=== PATIENT | female | born 1990 | race Caucasian/White ===

== ENCOUNTER 2020-05-10 22:33 | Emergency (ER) | payer OTHER ==
[2020-05-10 23:06] VITALS: BP 106/70; PULSE 85; TEMP 98.9; BMI 23.5
--- NOTE | 2020-05-10 23:13 | PDOC ---
History of Present Illness - General Chief Complaint: CVA/TIA Stated Complaint: NUMBNESS Time Seen by Provider: 05/10/20 23:05 History Source: Patient Exam Limitations: No Limitations - History of Present Illness Initial Comments: 05/10/20 23:28 29y previously healthy F presenting w 3d nausea, vomiting, finger tingling after binge drinking [employer] vodka. Took tylenol and force vomiting today w/o relief. Denies fever, cough, chest pain, SOB, urinary/bowel mvmt changes. Past History - Medical History Allergies/Adverse Reactions: Allergies Allergy/AdvReac Type Severity Reaction Status Date / Time No Known Allergies Allergy Verified 06/18/14 19:53 Home Medications: Ambulatory Orders Amoxicillin/Potassium Clav [Augmentin 875-125 Tablet] 1 each PO BID #14 tablet 06/18/14 Ibuprofen [Motrin -] 600 mg PO TID #20 tablet 06/18/14 Sulfamethoxazole/Trimethoprim [Bactrim DS -] 1 tab PO BID #10 tablet 06/18/14 Oxycodone HCl/Acetaminophen [Percocet 5-325 mg Tablet -] 1 tab PO Q6H PRN #4 tablet 06/19/14 Ondansetron [Zofran *Odt*] 4 mg SL TID #10 od.tablet 05/11/20 COPD: No - Reproductive History Is Patient Now?: No - Psycho-Social/Smoking History Smoking History: Never smoked Have you smoked in the past 12 months: No Number of Cigarettes Smoked Daily: 0 If you are a former smoker, when did you quit?: SMOKES MARIJUANA DAILY PER HER REPORT 'Breaking Loose' booklet given: 06/18/14 - Substance Abuse Hx (Audit-C & DAST Scrn) How often the patient has a drink containing alcohol: Monthly or less Score: In Men: 4 or > Positive; In Women: 3 or > Positive: 1 Screen Result (Pos requires Nsg. Audit-10AR): Negative In the last yr the pt used illegal drug/Rx for NonMed reason: Yes Score: Yes response is considered Positive: 1 Screen Result (Positive result requires Nsg. DAST-10): Positive Review of Systems - Review of Systems Constitutional: No: Chills, Fever HEENTM: No: Eye Pain, Nose Congestion Respiratory: No: Cough, Shortness of Breath Cardiac (ROS): No: Chest Pain, Palpitations ABD/GI: Yes: Nausea, Vomiting. No: Constipated, Diarrhea : No: Burning, Dysuria Musculoskeletal: No: Back Pain, Joint Pain Integumentary: No: Bruising, Flushing Neurological: No: Headache, Seizure Psychiatric: No: Anxiety, Depression Endocrine: No: Intolerance to Cold, Intolerance to Heat Hematologic/Lymphatic: No: Anemia, Blood Clots *Physical Exam - Vital Signs Last Vital Signs Temp Pulse Resp BP Pulse Ox 98.9 F 85 20 106/70 100 05/10/20 23:00 05/10/20 23:00 05/10/20 23:00 05/10/20 23:00 05/10/20 23:00 - Physical Exam General Appearance: Yes: Nourished, Appropriately Dressed, Mild Distress HEENT: positive: EOMI, RAJENDRA, Normal Voice, Hearing Grossly Normal. negative: Scleral Icterus (R), Scleral Icterus (L) Respiratory/Chest: positive: Lungs Clear, Normal Breath Sounds. negative: Chest Tender, Respiratory Distress Cardiovascular: positive: Regular Rhythm, Regular Rate, S1, S2. negative: Edema, Murmur Gastrointestinal/Abdominal: positive: Normal Bowel Sounds, Flat, Soft. negative: Tender, Organomegaly Musculoskeletal: negative: CVA Tenderness (R), CVA Tenderness (L) Extremity: positive: Delayed Capillary Refill Integumentary: positive: Normal Color, Dry, Warm Neurologic: positive: Fully Oriented, Alert, Normal Mood/Affect, Normal Response, Responsive. negative: Confused, Disoriented ED Treatment Course - LABORATORY CBC & Chemistry Diagram: 05/11/20 00:05 05/11/20 00:05 Medical Decision Making - Medical Decision Making 05/11/20 01:33 EKG - sinus bradycardia, HR 59, QTc 431, low voltage 7.5 metabolic alkalosis --- 29y previously healthy F presenting w 3d nausea, vomiting, finger tingling after binge drinking [employer] vodka Symptoms 2/2 veisalgia vs dehydration. No severe metabolic abnormalities, not , no sign of alcoholic acidosis Given 1L NS, banana bag, zofran, pepcid. Pt refused maalox. Tolerated PO fluids DC home w PCP referral, zofran Discharge - Discharge Information Problems reviewed: Yes Clinical Impression/Diagnosis: Dehydration Hangover Qualifiers: Complication of substance-induced condition: uncomplicated Qualified Code(s): F10.120 - Alcohol abuse with intoxication, uncomplicated Condition: Improved Disposition: HOME - Additional Discharge Information Prescriptions: Ondansetron [Zofran *Odt*] 4 mg SL TID #10 od.tablet - Follow up/Referral Referrals: Ra Verdin MD [Staff Physician] - - Patient Discharge Instructions Patient Printed Discharge Instructions: DI for Alcohol Abuse Additional Instructions: Your workup did not show anything concerning Do not binge drink alcohol Drink lots of water Follow up with the referred primary care doctor Dr Verdin - Post Discharge Activity
[2020-05-10] MEDS ORDERED: ONDANSETRON 4 MG/2 ML VIAL IVPUSH ONE (23:19)
[2020-05-10] MEDS ORDERED: SODIUM CHLORIDE 0.9% 500 ML INFUS.BAG IV ONE (23:19)
[2020-05-10] MEDS ORDERED: FOLIC ACID INJECTION - 1 MG, THIAMINE HCL 100 MG, MULTIVIT INJECTION ADULT 10 ML in SOD... IVPB ONE (23:25)
[2020-05-11 00:27] LABS: HEMOGLOBIN 13.7 GM/dL (10.7-15.3)
[2020-05-11 00:30] LABS: BASO % 0.6 % (0-2.0); EOS % 0.6 % (0-4.5); LYMPH % 27.1 % (8-40); MCH 29.8 pg (25.7-33.7); MCHC 34.3 g/dl (32.0-36.0); MEAN CELL VOLUME 86.8 fl (80-96); MEAN PLT VOLUME 9.2 fl (7.5-11.1); MONO % 8.1 % (3.8-10.2); NEUT % 63.6 % (42.8-82.8); PLATELET COUNT 266 K/MM3 (134-434); RDW 12.4 % (11.6-15.6)
[2020-05-11 00:52] LABS: ALBUMIN 4.4 g/dl (3.4-5.0); BILIRUBIN,TOTAL 1.2 mg/dL (0.2-1); BLOOD UREA NITROGEN 10.6 mg/dL (7-18); CALCIUM 9.6 mg/dL (8.5-10.1); CREATININE 0.7 mg/dL (0.55-1.3); PHOSPHOROUS 2.2 mg/dL (2.5-4.9); POTASSIUM 3.6 mmol/L (3.5-5.1); TOT PROT 7.7 g/dl (6.4-8.2)
[2020-05-11 00:54] LABS: VENOUS BASE EXCESS -1.9 mmol/L (-2-2); VENOUS O2 SATURATION 68.3 % (70-80); VENOUS PCO2 23.8 mmHg (38-52); VENOUS PH 7.524 (7.310-7.410)
[2020-05-11] MEDS ORDERED: MAG HYDROX/AL HYDROX/SIMETH 30 ML UNIT-DOSE CUP PO ONE (00:59)
[2020-05-11] MEDS ORDERED: FAMOTIDINE 20 MG/50 ML IVPB 20 MG/50 ML MG IVPB ONE ×2 (00:59→01:09)
[2020-05-11] MEDS ORDERED: MAG HYDROX/AL HYDROX/SIMETH 30 ML UNIT-DOSE CUP ONE (01:05)
[2020-05-11] MEDS ORDERED: ONDANSETRON 4 MG/2 ML VIAL IVPUSH ONE (01:53)
--- NOTE | 2020-05-11 21:06 | PDOC ---
Documentation entered by Kori Núñez SCRIBE, acting as scribe for Chantelle Henning MD. Chantelle Henning MD: This documentation has been prepared by the sheryleNiya Sydney, SCRIBE, under my direction and personally reviewed by me in its entirety. I confirm that the documentation accurately reflects all work, treatment, procedures, and medical decision making performed by me. Attending Attestation - Resident Resident Name: Abimael Juárez - ED Attending Attestation I have performed the following: I have examined & evaluated the patient, The case was reviewed & discussed with the resident, I agree w/resident's findings & plan, Exceptions are as noted - HPI HPI: 05/10/20 23:37 Patient is a 29 year old female with no significant past medical history who presents to the ED with three days of worsening nausea and vomiting. As per patient, she had been binge drinking [employer] vodka when she developed her symptoms and also endorses some associated finger tingling. Patient reports taking tylenol and force vomiting today with no relief of her symptoms, prompting her arrival to the ED. Denies fever, chills, headache, chest pain, shortness of breath, diarrhea, constipation, or urinary changes. Allergies: NKDA - Physicial Exam PE: 05/12/20 05:50 Pt went out drinking and she has epigastric pain and nausea. Pt has been vomiting and nauseous. 05/12/20 06:11 Agree with resident exam - Medical Decision Making 05/12/20 05:50 Pt was hydrated in the ER; she doesn't feels well, but she is feeling slightly improved. She has normal labs. Betahydroxybutarate is elevated. Pt encouraged to drink and hydrate at home. Pt understands that her tbili is elevated and that she needs to not binge drink. Pt admits that she went out got her hair done and then barely ate and then she and her sig other went out drinking in [facility] Discharge - Discharge Information Problems reviewed: Yes Clinical Impression/Diagnosis: Dehydration Hangover Qualifiers: Complication of substance-induced condition: uncomplicated Qualified Code(s): F10.120 - Alcohol abuse with intoxication, uncomplicated Condition: Improved Disposition: HOME - Additional Discharge Information Prescriptions: Ondansetron [Zofran *Odt*] 4 mg SL TID #10 od.tablet - Follow up/Referral Referrals: Ra Verdin MD [Staff Physician] - Maddie Thompson MD [Staff Physician] - - Patient Discharge Instructions Patient Printed Discharge Instructions: DI for Alcohol Abuse Additional Instructions: Your workup did not show anything concerning Do not binge drink alcohol Drink lots of water Follow up with the referred primary care doctor Dr Verdin and referred GI Dr Thompson Come back to the ED if you have worsening abdominal pain, persistent vomiting, or fevers. - Post Discharge Activity
--- NOTE | 2020-05-12 21:47 | EKG ---
Test Reason : Blood Pressure : / mmHG Vent. Rate : 059 BPM Atrial Rate : 059 BPM P-R Int : 140 ms QRS Dur : 096 ms QT Int : 436 ms P-R-T Axes : 030 036 035 degrees QTc Int : 431 ms SINUS BRADYCARDIA CANNOT RULE OUT ANTERIOR INFARCT , AGE UNDETERMINED ABNORMAL ECG NO PREVIOUS ECGS AVAILABLE Confirmed by JORGE RODRIGUES MD ([id number]) on 05/12/2020 9:46:48 PM Referred By: Confirmed By:JORGE RODRIGUES MD
== END 2020-05-11 02:40 | disposition home or self-care (01) ==
LOC: JER 22:33
PROC: 3E033GC Introduction of Other Therapeutic Substance into Peripheral Vein, Percutaneous Approach (ICD-10-PCS; principal; 2020-05-10)
DX: E86.0 Dehydration (principal); F10.120 Alcohol abuse with intoxication, uncomplicated
CPT/HCPCS: 36415; 80053; 82010; 82803; 83735; 84100; 84703; 85025; 93005; 93010; 99284-25

== ENCOUNTER 2020-05-12 03:32 | Emergency (ER) | payer OTHER ==
--- NOTE | 2020-05-12 04:03 | PDOC ---
Attending Attestation - Resident Resident Name: Abimael Juárez - ED Attending Attestation I have performed the following: I have examined & evaluated the patient, The case was reviewed & discussed with the resident, I agree w/resident's findings & plan - HPI HPI: 05/12/20 04:03 PT RETURNS - Physicial Exam PE: 05/12/20 05:52 Pt has lower abd pain. She feels lousyAfebtile neuro no deficits no upper abd pain no flank pain no extremity swelling lower quadrant pain; No vag discharge - Medical Decision Making 05/12/20 05:54 UA will be sent covid testing will be sent 05/12/20 06:52 SONO OF PELVIS PENDING; PT WILL BE SIGNED OUT TO THE DAY TEAM Discharge - Discharge Information Problems reviewed: Yes Clinical Impression/Diagnosis: Pelvic pain, Dehydration UTI (urinary tract infection) Qualifiers: Urinary tract infection type: acute cystitis Hematuria presence: without hematuria Qualified Code(s): N30.00 - Acute cystitis without hematuria Condition: Improved Disposition: HOME - Additional Discharge Information Prescriptions: Cephalexin [Keflex] 250 mg PO QID 5 Days #5 capsule - Follow up/Referral Referrals: Lan Tolbert MD [Staff Physician] - Bharti Morris MD [Staff Physician] - Kaylan Bradford MD [Staff Physician] - Yonas Saravia MD [Staff Physician] - CallBack Reminder: GC - Patient Discharge Instructions Patient Printed Discharge Instructions: DI for Ovarian Cyst Additional Instructions: You came into the ED for abdominal pain with nausea for a few days. With your recent visit you were sent home with zofran which helped with nausea but not the abdominal pain. Pelvic exam showed some discharge without any other concerning signs. Urinalysis did not show blood, making kidney stones unlikely, however there were some bacteria, so possible UTI and will be discharged with antibiotics. You had a pelvic ultrasound done which showed a right ovarian cyst with free pelvic fluid. This could be evidence of a ruptured cyst causing abdominal pain, and should expect to have continued discomfort over the next few days. It is advised that you follow up with OBGYN within the next 2 weeks. Return to the ED if you experience intense abdominal pain, abnormal vaginal bleeding, or vomiting without the ability to hold down water. - Post Discharge Activity
--- NOTE | 2020-05-12 04:06 | PDOC ---
History of Present Illness - General Chief Complaint: Pain, Acute Stated Complaint: ABDOMINAL PAIN Time Seen by Provider: 05/12/20 03:56 History Source: Patient Exam Limitations: No Limitations - History of Present Illness Initial Comments: 05/12/20 05:15 29y previously healthy F presenting w 1d intermittent mild pelvic pain. Not exertional. Not improved w zofran and tylenol, last 9pm last night. Has been tolerating PO fluids. Had L ruptured cyst in past. Was evaluated in ED yesterday for 3d nausea, vomiting, abd discomfort attributed to veisalgia vs dehydration. Denies fever, n/v, dysuria, constipation, vaginal bleeding/discharge. Past History - Medical History Allergies/Adverse Reactions: Allergies Allergy/AdvReac Type Severity Reaction Status Date / Time No Known Allergies Allergy Verified 05/12/20 04:02 Home Medications: Ambulatory Orders Amoxicillin/Potassium Clav [Augmentin 875-125 Tablet] 1 each PO BID #14 tablet 06/18/14 Ibuprofen [Motrin -] 600 mg PO TID #20 tablet 06/18/14 Sulfamethoxazole/Trimethoprim [Bactrim DS -] 1 tab PO BID #10 tablet 06/18/14 Oxycodone HCl/Acetaminophen [Percocet 5-325 mg Tablet -] 1 tab PO Q6H PRN #4 tablet 06/19/14 Ondansetron [Zofran *Odt*] 4 mg SL TID #10 od.tablet 05/11/20 COPD: No - Reproductive History Is Patient Now?: No - Psycho-Social/Smoking History Smoking History: Never smoked Have you smoked in the past 12 months: No Number of Cigarettes Smoked Daily: 0 If you are a former smoker, when did you quit?: SMOKES MARIJUANA DAILY PER HER REPORT Information on smoking cessation initiated: No 'Breaking Loose' booklet given: 06/18/14 - Substance Abuse Hx (Audit-C & DAST Scrn) How often the patient has a drink containing alcohol: Monthly or less Number of drinks the patient has on a typical day: 1 or 2 How often the patient has six or more drinks on one occasion: Never Score: In Men: 4 or > Positive; In Women: 3 or > Positive: 1 Screen Result (Pos requires Nsg. Audit-10AR): Negative In the last yr the pt used illegal drug/Rx for NonMed reason: No Score: Yes response is considered Positive: 0 Screen Result (Positive result requires Nsg. DAST-10): Negative Review of Systems - Review of Systems Constitutional: No: Chills, Fever HEENTM: No: Eye Pain, Nose Congestion Respiratory: No: Cough, Shortness of Breath Cardiac (ROS): No: Chest Pain, Palpitations ABD/GI: No: Abdominal Distended, Constipated, Diarrhea : No: Burning, Dysuria Musculoskeletal: No: Back Pain, Joint Pain Integumentary: No: Bruising, Flushing Neurological: No: Headache, Seizure Psychiatric: No: Anxiety, Depression Endocrine: No: Intolerance to Cold, Intolerance to Heat Hematologic/Lymphatic: No: Anemia, Blood Clots *Physical Exam - Vital Signs Last Vital Signs Temp Pulse Resp BP Pulse Ox 97.8 F 74 15 101/65 98 05/12/20 04:00 05/12/20 04:00 05/12/20 04:00 05/12/20 04:00 05/12/20 04:00 - Physical Exam General Appearance: Yes: Nourished, Appropriately Dressed, Mild Distress HEENT: positive: EOMI, RAJENDRA, Normal Voice, Hearing Grossly Normal. negative: Scleral Icterus (R), Scleral Icterus (L) Respiratory/Chest: positive: Lungs Clear, Normal Breath Sounds. negative: Chest Tender, Respiratory Distress Cardiovascular: positive: Regular Rhythm, Regular Rate, S1, S2. negative: Edema, Murmur Gastrointestinal/Abdominal: positive: Normal Bowel Sounds, Tender (L and R mild pelvic tenderness), Flat, Soft Musculoskeletal: negative: CVA Tenderness (R), CVA Tenderness (L) Integumentary: positive: Normal Color, Dry, Warm Neurologic: positive: Fully Oriented, Alert, Normal Mood/Affect, Normal Response, Responsive Medical Decision Making - Medical Decision Making 05/12/20 05:18 TVUS pelvic exam - closed cervical os, physiologic discharge in vaginal vault, no cer vical/ovarian tenderness --- 29y previously healthy F presenting w 1d intermittent mild pelvic pain. Has UTI. Ovarian cyst? Not . Low concern for torsion Given tylenol, 2L fluids, rocephin Anticipate DC home w keflex Signed out to day team - dispo pending TVUS Discharge - Discharge Information Problems reviewed: Yes Clinical Impression/Diagnosis: Pelvic pain, Dehydration UTI (urinary tract infection) Qualifiers: Urinary tract infection type: acute cystitis Hematuria presence: without hematuria Qualified Code(s): N30.00 - Acute cystitis without hematuria Condition: Improved - Follow up/Referral - Patient Discharge Instructions - Post Discharge Activity
[2020-05-12 04:07] VITALS: BMI 23.1
[2020-05-12] MEDS ORDERED: ACETAMINOPHEN 500 MG TABLET (FP) PO ONE (04:21)
[2020-05-12] MEDS ORDERED: ACETAMINOPHEN 325 MG TABLET (FP) ONE (04:25)
[2020-05-12] MEDS ORDERED: SODIUM CHLORIDE 0.9% 500 ML INFUS.BAG IV ONE ×2 (04:26→06:51)
[2020-05-12 06:47] LABS: EPI CELLS 5 /uL (0-25.1); HYALINE CASTS 4 /uL (0-3.1); URINE APPEARANCE CLEAR; URINE BACTERIA 155 /uL (0-1359); URINE BILIRUBIN NEGATIVE (NEGATIVE); URINE COLOR YELLOW; URINE GLUCOSE (UA) NEGATIVE (NEGATIVE); URINE KETONE 2+ (NEGATIVE); URINE LEUK ESTERASE TRACE (NEGATIVE); URINE NITRITE NEGATIVE (NEGATIVE); URINE PROTEIN NEGATIVE (NEGATIVE); URINE RBC 3 /uL (0-23.9); URINE WBC 35 /uL (0-25.8)
[2020-05-12] MEDS ORDERED: CEFTRIAXONE 1 GM in DEXTROSE 5%-WATER - 100 ML IVPB ONE (06:57)
[2020-05-12] MEDS ORDERED: CEFTRIAXONE 1 GM/50 ML BAG ONE (07:14)
--- NOTE | 2020-05-12 10:44 | PDOC ---
*Physical Exam - Vital Signs Last Vital Signs Temp Pulse Resp BP Pulse Ox 98.3 F 60 15 108/71 100 05/12/20 06:40 05/12/20 06:40 05/12/20 06:40 05/12/20 06:40 05/12/20 06:40 ED Treatment Course - ADDITIONAL ORDERS Additional order review: Laboratory Results 05/12/20 05:26 Urine Color Yellow Urine Appearance Clear Urine pH 5.0 Ur Specific [place] 1.019 Urine Protein Negative Urine Glucose (UA) Negative Urine Ketones 2+ H Urine Blood Negative Urine Nitrite Negative Urine Bilirubin Negative Urine Urobilinogen 1.0 Ur Leukocyte Esterase Trace Urine WBC (Auto) 35 Urine RBC (Auto) 3 Urine Casts (Auto) 4 U Epithel Cells (Auto) 5 Urine Bacteria (Auto) 155 - Medications Given in the ED: ED Medications Discontinued Medications Generic Name Dose Route Start Last Admin Trade Name Freq PRN Reason Stop Dose Admin Acetaminophen 975 mg 05/12/20 04:21 05/12/20 04:25 Tylenol - PO 05/12/20 04:22 975 mg ONCE ONE Administration Ceftriaxone Sodium 1 gm/ 100 mls @ 200 mls/hr 05/12/20 06:57 05/12/20 07:15 Dextrose IVPB 05/12/20 07:26 200 mls/hr ONCE ONE Administration Sodium Chloride 1,000 ml 05/12/20 04:26 05/12/20 05:02 Normal Saline - IV 05/12/20 04:27 1,000 ml ONCE ONE Administration Sodium Chloride 1,000 ml 05/12/20 06:51 05/12/20 07:02 Normal Saline - IV 05/12/20 06:52 1,000 ml ONCE ONE Administration Medical Decision Making - Medical Decision Making Signed out from night team 05/12 07:15. 29F previously healthy presenting w 1d intermittent mild pelvic pain. Pelvic exam - closed cervical os, physiologic discharge in vaginal vault, no cervical/ovarian tenderness No dysuria but bacteria present on UA, will d/c with keflex. Upreg negative. Given tylenol, 2L fluids, rocephin TVUS demonstrated right ovarian cyst with free pelvic fluid and no evidence of torsion. Patient concerned of chlamydia infection in Oct, and felt she didn't follow antibiotic instructions properly and concerned for continued infection. No CMT on pelvic exam but will be given GC/chlamydia test. Patient safe for discharge to follow up with OBGYN. Discharge - Discharge Information Clinical Impression/Diagnosis: Pelvic pain, Dehydration UTI (urinary tract infection) Qualifiers: Urinary tract infection type: acute cystitis Hematuria presence: without sonam turia Qualified Code(s): N30.00 - Acute cystitis without hematuria Condition: Improved Disposition: HOME - Admission No - Additional Discharge Information Prescriptions: Cephalexin [Keflex] 250 mg PO QID 5 Days #5 capsule - Follow up/Referral Referrals: Bharti Morris MD [Staff Physician] - Yonas Saravia MD [Staff Physician] - Kaylan Bradford MD [Staff Physician] - Lan Tolbert MD [Staff Physician] - CallBack Reminder: GC - Patient Discharge Instructions Patient Printed Discharge Instructions: DI for Ovarian Cyst Additional Instructions: You came into the ED for abdominal pain with nausea for a few days. With your recent visit you were sent home with zofran which helped with nausea but not the abdominal pain. Pelvic exam showed some discharge without any other concerning signs. Urinalysis did not show blood, making kidney stones unlikely, however there were some bacteria, so possible UTI and will be discharged with antibiotics. You had a pelvic ultrasound done which showed a right ovarian cyst with free pelvic fluid. This could be evidence of a ruptured cyst causing abdominal pain, and should expect to have continued discomfort over the next few days. It is advised that you follow up with OBGYN within the next 2 weeks. Return to the ED if you experience intense abdominal pain, abnormal vaginal bleeding, or vomiting without the ability to hold down water. - Post Discharge Activity
[2020-05-12 11:48] VITALS: BP 138/91; PULSE 55; TEMP 98.4
== END 2020-05-12 12:09 | disposition home or self-care (01) ==
LOC: JER 03:32
DX: R10.2 Pelvic and perineal pain (principal); N30.00 Acute cystitis without hematuria
CPT/HCPCS: 36415; 76830-TC; 81003; 87086; 87186; 87491; 87591; 87661; 96374; 99284-25; U0003